=== PATIENT | female | born 1965 | race Caucasian/White ===

== ENCOUNTER 2017-05-18 05:48 | Day surgery (SDC) | payer BC ==
[2017-05-18] MEDS ORDERED: Lactated Ringers 1,000 ML IV SCH (06:30)
[2017-05-18] MEDS ORDERED: Ketamine HCl 50 MG/ML IV ONE (08:00)
[2017-05-18] MEDS ORDERED: DIPRIVAN 200 MG/20 ML IV ONE (08:00)
[2017-05-18 10:11] VITALS: BP 127/72; PULSE 83; O2SAT 97
--- NOTE | 2017-05-18 11:45 | OP ---
SURGERY DATE/TIME: 05/18/2017817 PREOPERATIVE DIAGNOSIS: Dysphagia. POSTOPERATIVE DIAGNOSIS: Normal exam. PROCEDURE: Esophagogastroduodenoscopy. SURGEON: Dr. Shah. ANESTHESIA: Medications were given by the anesthesia department. BRIEF HISTORY: The patient is a 51 year old white female who reports that over the last three weeks she has had trouble with food sticking in her throat. She points to the neck area as the area of discomfort. The patient is felt the need to have endoscopic evaluation. She was appraised of the risks of the procedure including the risk of perforation, phlebitis, untoward reaction to medication, bleeding and missed lesions. The patient verbalized her understanding and desired to have the procedure performed. DESCRIPTION OF PROCEDURE: The patient was given the medications by the anesthesia department. She had continuous pulse oximetry, ECG monitoring, intermittent blood pressure monitoring and tidal CO2 monitoring during the examination. She was placed in the left lateral decubitus position. A bite block was placed and the flexible Olympus gastroscope was used to intubate the oropharynx. The scope was easily introduced into the esophagus which appeared to be normal throughout its length. The stomach was entered where normal gastric rugal folds were seen and these distended nicely with insufflation of air. The scope was passed along the greater curvature of the stomach to the antrum. The pylorus encountered and intubated. The duodenum inspected and found to be normal. The scope is withdrawn towards the stomach. Again, a retroflex view was obtained of the lesser curvature, fundus and cardia regions of the stomach and no mucosal lesions were noted in this area. The scope was then removed from the patient who tolerated the procedure well and was sent back to outpatient recovery good condition.
== END 2017-05-18 09:50 | disposition home or self-care (01) ==
LOC: SDC 05:48
PROVIDERS: ATTEND Family Medicine
PROC: 0DJ08ZZ Inspection of Upper Intestinal Tract, Via Natural or Artificial Opening Endoscopic (ICD-10-PCS; principal; 2017-05-18)
DX: R13.10 Dysphagia, unspecified (principal); I10 Essential (primary) hypertension; E78.5 Hyperlipidemia, unspecified
CPT/HCPCS: 00740; J2704

== ENCOUNTER 2019-01-16 11:24 | Observation (INO) | payer OTHER ==
--- NOTE | 2019-01-16 12:08 | ERPHSYRPT ---
- History of Present Illness Time Seen by Provider: 01/16/19 11:30 Historian: patient Exam Limitations: clinical condition Patient Subjective Stated Complaint: pt states has diverticulitis and started having pain yesterday. called Dr Shah's office and stated would need a CT scan but Dr not in office to sign order so she came into ER since pain not getting better. Pt c/o left lower abd pain radiating into back. ate last night at 8pm. normal BMs Triage Nursing Assessment: Pt amb to treatment room. abd Soft, tender to palp. normal BM. +BS [id number]. Bm today. has not ate today d/t nausea. skin pink, warm and dry without impaired sensation. states pain currently at 02/01, took 1 ibuprofen d/t having 1 kidney. pain earlier this am 08/03 but better after taking ibuprofen. Physician History: PATIENT WITH A HISTORY OF INTERMITTENT DIVERTICULITIS, HAS BEEN TREATED WITH ANTIBIOTICS LEVAQUIN X 4 WEEKS, HAS INCREASING LEFT LOWER ABDOMINAL PAIN PESISTENT X 2 DAYS. UNSURE OF FEVER OR CHILLS. DENIES EMESIS, DIARRHEA OR URINARY SYMPTOMS. HAS HISTORY OF RIGHT NEPHRECTOMY DUE TO CARCINOMA. Timing/Duration: day(s) Activities at Onset: none Quality: sharpness, throbbing Abdominal Pain Onset Location: LLQ Pain Radiation: no radiation Severity of Pain-Max: moderate Severity of Pain-Current: moderate Associated Symptoms: nausea, vomiting (4 DAYS AGO) Allergies/Adverse Reactions: hydrocodone [Hydrocodone] Allergy (Intermediate, Verified 11/04/16 15:01) Difficulty Breathing swelling Penicillins Allergy (Intermediate, Verified 05/18/17 06:23) Swelling of Hands vancomycin Allergy (Intermediate, Verified 05/18/17 06:23) Skin Irritation cinammon Allergy (Intermediate, Uncoded 05/18/17 06:23) Swelling Home Medications: Potassium Chloride 10 Meq Tab* [Klor Con 10 MEQ] 20 meq PO DAILY 08/16/14 [ History] Hctz/Triamterene 25/37.5 mg [Maxzide 25MG] 25 mg DAILY 11/04/16 [History] Metformin HCl [Metformin HCl ER] 500 mg PO BID 11/04/16 [History] Losartan/Hydrochlorothiazide [Losartan-Hctz 100-12.5 mg Tab] 1 tab PO HS [History] Hx Tetanus, Diphtheria Vaccination/Date Given: Yes (past 7 years) Hx Influenza Vaccination/Date Given: No Hx Pneumococcal Vaccination/Date Given: No Immunizations Up to Date: Yes - Review of Systems Constitutional: No Fever, No Chills Eyes: No Symptoms Ears, Nose, & Throat: No Symptoms Respiratory: No Symptoms, No Cough, No Dyspnea Cardiac: No Symptoms, No Chest Pain, No Edema, No Syncope Abdominal/Gastrointestinal: Abdominal Pain, Nausea, Vomiting, No Diarrhea Genitourinary Symptoms: No Symptoms, No Dysuria Musculoskeletal: No Symptoms, No Back Pain, No Neck Pain Skin: No Rash Neurological: No Dizziness, No Focal Weakness, No Sensory Changes Psychological: No Symptoms Endocrine: No Symptoms All Other Systems: Reviewed and Negative - Past Medical History Pertinent Past Medical History: Yes Neurological History: No Pertinent History ENT History: No Pertinent History Cardiac History: High Cholesterol, Hypertension Respiratory History: Asthma, Bronchitis Endocrine Medical History: Diabetes Type I Musculoskeletal History: No Pertinent History GI Medical History: Diverticulosis History: Other Psycho-Social History: No Pertinent History Female Reproductive Disorders: No Pertinent History Other Medical History: uti, kidney cancer - Past Surgical History Past Surgical History: Yes Neuro Surgical History: No Pertinent History Cardiac: No Pertinent History Respiratory: No Pertinent History Gastrointestinal: Appendectomy, Cholecystectomy Genitourinary: Kidney Surgery, Other Musculoskeletal: Other Female Surgical History: Hysterectomy, Tubal Ligation Other Surgical History: right kidney removed. rt knee, lt hand tumor removed, rt wrist carpal tunnel, partial hysterectomy - Social History Smoking Status: Former smoker How long have you smoked: 24 yrs Exposure to second hand smoke: No Drug Use: none Patient Lives Alone: No - Female History Hx Last Menstrual Period: hysterectomy 2013 Hx Now: No - Nursing Vital Signs Nursing Vital Signs: Initial Vital Signs Temperature 97.7 F 01/16/19 11:24 Pulse Rate 88 01/16/19 11:24 Respiratory Rate 18 01/16/19 11:24 Blood Pressure 121/67 01/16/19 11:24 O2 Sat by Pulse Oximetry 98 01/16/19 11:24 Pain Scale Pain Intensity 4 - Physical Exam General Appearance: no apparent distress, alert Eye Exam: PERRL/EOMI, eyes nml inspection Ears, Nose, Throat Exam: normal ENT inspection, pharynx normal, moist mucous membranes Neck Exam: normal inspection, non-tender, supple, full range of motion Respiratory Exam: normal breath sounds, lungs clear, No respiratory distress Cardiovascular Exam: regular rate/rhythm, normal heart sounds Gastrointestinal/Abdomen Exam: soft, normal bowel sounds, tenderness (LLQ TENDERNESS, ), No mass Back Exam: normal inspection, normal range of motion, CVA tenderness (LEFT CVA TENDERNESS), No vertebral tenderness Extremity Exam: normal inspection, normal range of motion, pelvis stable Neurologic Exam: alert, oriented x 3, cooperative, normal mood/affect, nml cerebellar function, sensation nml, No motor deficits Skin Exam: normal color, warm, dry SpO2 Interpretation: normal SpO2: 98 O2 Delivery: Room Air - CT Exams Abdomen/Pelvis CT Interpretation: Discussed w/radiologist (NEW MILD SIGMOID DIVETICULITIS,) Ordered Tests: Active Orders 24 hr Category Date Time Status Clean Catch Urine Specimen STAT Care 01/16/19 12:09 Active IV Insertion STAT Care 01/16/19 12:09 Active ABDOMEN AND PELVIS W/0 CONTRAS [CT] Stat Exams 01/16/19 12:09 Completed AMYLASE Stat Lab 01/16/19 12:45 Received BMP Stat Lab 01/16/19 12:45 Received CBC W DIFF Stat Lab 01/16/19 12:59 Completed LIPASE Stat Lab 01/16/19 12:45 Received UA W/RFX UR CULTURE Stat Lab 01/16/19 13:00 Ordered Medication Summary Generic Name Dose Route Start Last Admin Trade Name Freq PRN Reason Stop Dose Admin Sodium Chloride 1,000 mls @ 200 mls/hr 01/16/19 12:15 01/16/19 12:45 Sodium Chloride 0.9% 1000 Ml IV 02/15/19 12:14 200 mls/hr .Q5H SAMANTHA Administration Discontinued Medications Generic Name Dose Route Start Last Admin Trade Name Freq PRN Reason Stop Dose Admin Hydromorphone HCl 1 mg 01/16/19 12:09 01/16/19 12:46 Hydromorphone 1 Mg/Ml Ampule IV 01/16/19 12:10 1 mg STAT ONE Administration Hydromorphone HCl Confirm 01/16/19 12:41 Hydromorphone 1 Mg/Ml Ampule Administered 01/16/19 12:42 Dose 1 mg .ROUTE .STK-MED ONE Ondansetron HCl 4 mg 01/16/19 12:09 01/16/19 12:46 Zofran 4 Mg/2 Ml Vial IV 01/16/19 12:10 4 mg STAT ONE Administration Ondansetron HCl Confirm 01/16/19 12:41 Zofran 4 Mg/2 Ml Vial Administered 01/16/19 12:42 Dose 4 mg .ROUTE .STK-MED ONE Lab/Rad Data: Laboratory Result Diagrams 01/16/19 12:59 Laboratory Results 01/16/19 Range/Units 12:59 WBC 13.0 H (4.0-10.5) K/mm3 RBC 4.61 (4.1-5.4) M/mm3 Hgb 13.8 (12.0-16.0) gm/dl Hct 40.8 (35-47) % MCV 88.5 (78-100) fl MCH 29.9 (26-32) pg MCHC 33.8 (32-36) g/dl RDW 13.1 (11.5-14.0) % Plt Count 262 (150-450) K/mm3 MPV 11.4 H (6-9.5) fl Gran % 65.9 (36.0-66.0) % Eos # (Auto) 0.34 (0-0.5) Absolute Lymphs (auto) 3.22 (1.0-4.6) Absolute Monos (auto) 0.80 (0.0-1.3) Lymphocytes % 24.8 (24.0-44.0) % Monocytes % 6.2 (0.0-12.0) % Eosinophils % 2.6 (0.00-5.0) % Basophils % 0.5 (0.0-0.4) % Absolute Granulocytes 8.57 H (1.4-6.9) Basophils # 0.06 (0-0.4) - Progress Progress Note: 01/16/19 12:07 IV NORMAL SALINE 250ML/HR, ZOFAN 4MG IV, AFTER 2 SETS OF BLOOD CULTURES LEVAQUIN 500MG IVPB Discussed with : Moshe (DISCUSSED WITH DR GLASER AT 1315 FOR OBSERVATION) - Departure Time of Disposition: 13:40 Departure Disposition: Observation Clinical Impression: ACUTE SIGMOID DIVERTICULITIS Condition: Stable Critical Care Time: No Referrals: KUMAR SHAH [Primary Care Provider] -
[2019-01-16] MEDS ORDERED: Zofran 4 MG/2 ML VIAL IV ONE (12:09)
[2019-01-16] MEDS ORDERED: Hydromorphone 1 mg/ml Ampule IV ONE (12:09)
[2019-01-16] MEDS ORDERED: Sodium Chloride 0.9% 1000 ML 1,000 ML IV SCH ×2 (12:15→14:58)
[2019-01-16] MEDS ORDERED: Hydromorphone 1 mg/ml Ampule ONE (12:41)
[2019-01-16] MEDS ORDERED: Zofran 4 MG/2 ML VIAL ONE (12:41)
--- NOTE | 2019-01-16 13:01 | XRAY ---
Indication: Left lower abdomen pain. Multiple contiguous axial images obtained through the abdomen and pelvis without contrast as ordered. Comparison: December 21, 2014. Lung bases are clear. Heart is not enlarged. Noncontrasted stomach and bowel loops appear nonobstructed. Again previous reported appendectomy, cholecystectomy, and right nephrectomy. There is now mild diffuse scattered colonic fecal debris throughout. Stable scattered left hemicolon diverticulosis with now mild diverticulitis in the mid sigmoid. No free fluid/air. Stable diffuse fatty liver and small left mid renal cortical cyst with now punctate calcification. Interval partial hysterectomy. Essentially stable 3.7 cm right ovary cyst. Remaining liver, pancreas, spleen, adrenal glands, left kidney, left ureter, and bladder are unremarkable for noncontrast exam. Mild aortoiliac calcifications without AAA. Osseous structures intact with mild degenerative changes throughout the spine and both hips. Impression: 1. Again scattered colonic diverticulosis with new mild sigmoid diverticulitis. No complications. 2. There is now mild diffuse fecal stasis without obstruction. 3. Again incidental fatty liver, right ovary cyst, and tiny left renal cyst. CT DI 23.15
[2019-01-16 13:07] LABS: BASOPHIL % 0.5 % (0.0-0.4); Basophil (Absolute #) 0.06 (0-0.4); Eosinophil % 2.6 % (0.00-5.0); Eosinophil (Absolute #) 0.34 (0-0.5); Granulocyte Absolute (ANC) 8.57 (1.4-6.9); Granulocytes % 65.9 % (36.0-66.0); Hematocrit 40.8 % (35-47); Hemoglobin 13.8 gm/dl (12.0-16.0); Lymphocyte (Absolute #) 3.22 (1.0-4.6); Lymphocytes % 24.8 % (24.0-44.0); Mean Cell Volume 88.5 fl (78-100); Mean Corpuscular Hemoglobin 29.9 pg (26-32); Mean Corpuscular Hgb Concent. 33.8 g/dl (32-36); Mean Platelet Volume 11.4 fl (6-9.5); Monocytes % 6.2 % (0.0-12.0); Platelet Count 262 K/mm3 (150-450); Red Blood Count 4.61 M/mm3 (4.1-5.4); Red Cell Distribution Width 13.1 % (11.5-14.0)
[2019-01-16] MEDS ORDERED: Levofloxacin 500MG/100ML D5W 500 MG/100 ML BAG IV STA (13:18)
[2019-01-16 13:24] LABS: AMYLASE 72 U/L (30-110); ANION GAP 15.4 MEQ/L (5-15); BLOOD UREA NITROGEN 15 mg/dL (7-17); CHLORIDE 104 mmol/L (98-107); Calcium 9.5 mg/dL (8.4-10.2); Carbon Dioxide 25 mmol/L (22-30); Creatinine 1 0.77 mg/dL (0.52-1.04); Glucose 105 mg/dL (74-106); LIPASE 185 U/L (23-300); Potassium 3.7 mmol/L (3.5-5.1); SODIUM 141 mmol/L (137-145)
[2019-01-16] MEDS ORDERED: FLAGYL 500 MG IVPB 500 MG/100 ML BAG IV SCH (14:58)
[2019-01-16] MEDS ORDERED: MORPHINE SULFATE 4 MG INJ IV PRN (14:58)
[2019-01-16] MEDS ORDERED: Zofran 4 MG/2 ML VIAL IV PRN (14:58)
[2019-01-16] MEDS ORDERED: Levofloxacin 500MG/100ML D5W 500 MG/100 ML BAG IV SCH (15:00)
[2019-01-16 15:19] LABS: Appearance SLIGHTLY CLOUDY (CLEAR); Bilirubin NEGATIVE (NEGATIVE); Blood NEGATIVE Ery/ul (0-5); Epithelial Cells FEW /HPF (FEW); Glucose NEGATIVE (NEGATIVE); Ketones NEGATIVE (NEGATIVE); Leukocyte Esterase NEGATIVE (NEGATIVE); Mucus SLIGHT /HPF (NEGATIVE); Nitrite NEGATIVE (NEGATIVE); Protein,Urine Dip NEGATIVE (Negative); Specific Gravity 1.021 (1.005-1.025); Urobilinogen NEGATIVE mg/dL (0-1); WBC 0-2 /HPF (0-5)
[2019-01-16] MEDS: FLAGYL 500 MG IVPB 500 MG/100 ML BAG IV SCH ×2 (16:09→21:11)
--- NOTE | 2019-01-16 20:44 | PCM.HP ---
History of Present Illness - Chief Complaint Chief Complaint: ACUTE SIGMOID DIVERTICULITIS History of Present Illness: is a 53 year old female pt of Dr. Shah with PMHx GERD, HTN, diverticulitis, and renal cell ca (on R, with surgically absent R kidney now) who was admitted through ER with diverticulitis. She c/o trouble with LLQ pain since 11/25/18 - was given an outpatient rx and was feeling better. When she felt worse again, last Wednesday (1 week ago) she saw Dr. Shah and was given po Levaquin. She became worse yesterday afternoon, with LLQ pain, 9/10, radiating to her back. She came to ER and was started on IV levaquin and flagyl. She now says her pain is 2/10. Denies diarrhea or fever. Has had increased vomiting over the past 1 mo and was given zofran at home. - Review of Systems Constitutional: No Weight Loss (gained 9lb when out of HCTZ) Cardiac: Other (SOB when out of HCTZ recently - resolved) Abdominal/Gastrointestinal: Abdominal Pain, Nausea, Vomiting Neurological: Dizziness (when looking up or shifting eyes suddenly) Psychological: No Suicidal Ideations All Other Systems: Reviewed and Negative Medications & Allergies Home Medications: Home Medication List Potassium Chloride 10 Meq Tab* [Guero Con 10 MEQ] 20 meq PO DAILY 08/16/14 [ History Confirmed 01/16/19] Hctz/Triamterene 25/37.5 mg [Maxzide 25MG] 25 mg DAILY 11/04/16 [History Confirmed 01/16/19] Metformin HCl [Metformin HCl ER] 500 mg PO BID 11/04/16 [History Confirmed 01/16] Losartan/Hydrochlorothiazide [Losartan-Hctz 100-12.5 mg Tab] 1 tab PO HS [History Confirmed 01/16/19] P-Ephed HCl/Triprolidine HCl [Sudafed Sinus Nighttime Tab] 1 each PO HSPRN PRN 01/16/19 [History Confirmed 01/16/19] Allergies/Adverse Reactions: Allergies Allergy/AdvReac Type Severity Reaction Status Date / Time hydrocodone [Hydrocodone] Allergy Intermediate Difficulty Verified 01/16/19 15: 12 Breathing Penicillins Allergy Intermediate Swelling Verified 01/16/19 15:12 of Hands vancomycin Allergy Intermediate Shortness Verified 01/16/19 15:12 of Breath cinammon Allergy Intermediate Swelling Uncoded 01/16/19 15:12 - Past Medical History Past Medical History: Yes Neurological History: No Pertinent History ENT History: No Pertinent History Cardiac History: High Cholesterol, Hypertension Respiratory History: Asthma, Bronchitis Endocrine Medical History: Diabetes Type I Musculoskelatal History: No Pertinent History GI Medical History: Diverticulosis History: Other Pyscho-Social History: No Pertinent History Reproductive Disorders: No Pertinent History Comment: uti, kidney cancer - Female History Hx Last Menstrual Period: hysterectomy 2013 Are you now?: No - Past Surgical History Past Surgical History: Yes Neuro Surgical History: No Pertinent History Cardiac History: No Pertinent History Respiratory Surgery: No Pertinent History GI Surgical History: Appendectomy, Cholecystectomy Genitourinary Surgical Hx: Kidney Surgery, Other Musculskeletal Surgical Hx: Other Female Surgical History: Hysterectomy, Tubal Ligation Other Surgical History: right kidney removed. rt knee, lt hand tumor removed, rt wrist carpal tunnel, partial hysterectomy - Social History Smoking Status: Former smoker How long have you smoked: 24 yrs Exposure to second hand smoke: No Alcohol: None Drug Use: none - Physical Exam Vital Signs: Vital Signs - 24 hr Temp Pulse Resp BP Pulse Ox 01/16/19 17:11 93 L 01/16/19 15:38 98.4 F 79 18 113/62 93 L 01/16/19 14:36 98.4 F 79 18 113/62 93 L 01/16/19 14:24 98.4 F 79 18 113/62 93 L 01/16/19 13:54 98.4 F 79 18 113/62 93 L 01/16/19 13:20 98 01/16/19 12:24 98.4 F 79 18 113/62 93 L 01/16/19 11:24 97.7 F 88 18 121/67 98 General Appearance: no apparent distress, alert, obese Neurologic Exam: oriented x 3, cooperative Eye Exam: eyes nml inspection Ears, Nose, Throat Exam: moist mucous membranes Neck Exam: normal inspection, non-tender, No lymphadenopathy Respiratory Exam: normal breath sounds, lungs clear, No crackles/rales, No rhonchi, No wheezing Cardiovascular Exam: regular rate/rhythm, normal heart sounds, No murmur Gastrointestinal/Abdomen Exam: soft, normal bowel sounds, tenderness (LLQ), No distention, No mass, No guarding, No rebound Extremity Exam: normal inspection, No pedal edema, No swelling Skin Exam: normal color, warm, dry, No rash Results - Labs Lab/Micro Results: Lab Results-Last 24 Hours 01/16/19 01/16/19 01/16/19 Range/Units 12:45 12:59 15:00 WBC 13.0 H (4.0-10.5) K/mm3 RBC 4.61 (4.1-5.4) M/mm3 Hgb 13.8 (12.0-16.0) gm/dl Hct 40.8 (35-47) % MCV 88.5 (78-100) fl MCH 29.9 (26-32) pg MCHC 33.8 (32-36) g/dl RDW 13.1 (11.5-14.0) % Plt Count 262 (150-450) K/mm3 MPV 11.4 H (6-9.5) fl Gran % 65.9 (36.0-66.0) % Eos # (Auto) 0.34 (0-0.5) Absolute Lymphs (auto) 3.22 (1.0-4.6) Absolute Monos (auto) 0.80 (0.0-1.3) Lymphocytes % 24.8 (24.0-44.0) % Monocytes % 6.2 (0.0-12.0) % Eosinophils % 2.6 (0.00-5.0) % Basophils % 0.5 (0.0-0.4) % Absolute Granulocytes 8.57 H (1.4-6.9) Basophils # 0.06 (0-0.4) Sodium 141 (137-145) mmol/L Potassium 3.7 (3.5-5.1) mmol/L Chloride 104 (98-107) mmol/L Carbon Dioxide 25 (22-30) mmol/L Anion Gap 15.4 H (5-15) MEQ/L BUN 15 (7-17) mg/dL Creatinine 0.77 (0.52-1.04) mg/dL Estimated GFR > 60.0 ML/MIN Glucose 105 (74-106) mg/dL Calcium 9.5 (8.4-10.2) mg/dL Amylase 72 (30-110) U/L Lipase 185 (23-300) U/L Urine Color YELLOW (YELLOW) Urine Appearance SLIGHTLY CLOUDY (CLEAR) Urine pH 6.0 (5-6) Ur Specific [place] 1.021 (1.005-1.025) Urine Protein NEGATIVE (Negative) Urine Ketones NEGATIVE (NEGATIVE) Urine Blood NEGATIVE (0-5) Elbert/ul Urine Nitrite NEGATIVE (NEGATIVE) Urine Bilirubin NEGATIVE (NEGATIVE) Urine Urobilinogen NEGATIVE (0-1) mg/dL Ur Leukocyte Esterase NEGATIVE (NEGATIVE) Urine WBC (Auto) 0-2 (0-5) /HPF Urine RBC (Auto) NONE (0-2) /HPF U Epithel Cells (Auto) FEW (FEW) /HPF Urine Bacteria (Auto) NONE (NEGATIVE) /HPF Urine Mucus (Auto) SLIGHT (NEGATIVE) /HPF Urine Culture Reflexed NO (NO) Urine Glucose NEGATIVE (NEGATIVE) mg/dL - Radiology Impressions Radiology Exams & Impressions: Radiology Procedures Category Date Time Status ABDOMEN AND PELVIS W/0 CONTRAS [CT] Stat Exams 01/16/19 12:09 Completed Assessment/Plan (1) Diverticulitis Current Visit: No Status: Acute Qualifiers: Diverticulitis site: large intestine Diverticulitis bleeding: without bleeding Diverticulitis complication: without perforation or abscess Qualified Code(s): K57.32 - Diverticulitis of large intestine without perforation or abscess without bleeding Assessment & Plan: On IV levaquin and flagyl, day #1. improved pain. (2) Absent kidney Current Visit: Yes Status: Chronic Code(s): Z90.5 - ACQUIRED ABSENCE OF KIDNEY (3) GERD (gastroesophageal reflux disease) Current Visit: Yes Status: Chronic Qualifiers: Esophagitis presence: esophagitis presence not specified Qualified Code(s) : K21.9 - Gastro-esophageal reflux disease without esophagitis Code(s): K21.9 - GASTRO-ESOPHAGEAL REFLUX DISEASE WITHOUT ESOPHAGITIS (4) HTN (hypertension) Current Visit: Yes Status: Chronic Qualifiers: Hypertension type: essential hypertension Qualified Code(s): I10 - Essential (primary) hypertension Code(s): I10 - ESSENTIAL (PRIMARY) HYPERTENSION
[2019-01-16] MEDS: TYLENOL 325 MG PO PRN (21:10)
[2019-01-17] MEDS: FLAGYL 500 MG IVPB 500 MG/100 ML BAG IV SCH ×2 (03:10→10:36)
[2019-01-17] MEDS: TYLENOL 325 MG PO PRN ×2 (04:45→09:28)
[2019-01-17 06:09] LABS: BASOPHIL % 0.4 % (0.0-0.4); Basophil (Absolute #) 0.03 (0-0.4); Eosinophil % 3.9 % (0.00-5.0); Eosinophil (Absolute #) 0.28 (0-0.5); Granulocyte Absolute (ANC) 4.24 (1.4-6.9); Hematocrit 37.1 % (35-47); Hemoglobin 11.9 gm/dl (12.0-16.0); Lymphocyte (Absolute #) 1.98 (1.0-4.6); Lymphocytes % 27.5 % (24.0-44.0); Mean Cell Volume 90.5 fl (78-100); Mean Corpuscular Hgb Concent. 32.1 g/dl (32-36); Mean Platelet Volume 11.5 fl (6-9.5); Monocyte (Absolute #) 0.66 (0.0-1.3); Monocytes % 9.2 % (0.0-12.0); Platelet Count 218 K/mm3 (150-450); White Blood Count 7.2 K/mm3 (4.0-10.5)
[2019-01-17 06:22] LABS: ANION GAP 10.8 MEQ/L (5-15); BLOOD UREA NITROGEN 12 mg/dL (7-17); CHLORIDE 104 mmol/L (98-107); Calcium 9.1 mg/dL (8.4-10.2); Carbon Dioxide 29 mmol/L (22-30); Creatinine 1 0.87 mg/dL (0.52-1.04); Glucose 116 mg/dL (74-106); Potassium 3.7 mmol/L (3.5-5.1); SODIUM 140 mmol/L (137-145)
[2019-01-17] MEDS ORDERED: Klor Con 10 MEQ PO SCH (10:00)
[2019-01-17] MEDS ORDERED: Levofloxacin 500MG/100ML D5W 500 MG/100 ML BAG IV SCH (10:00)
[2019-01-17] MEDS ORDERED: ENOXAPARIN SODIUM SQ SCH (10:00)
[2019-01-17] MEDS ORDERED: Maxzide-25MG Tablet PO SCH (10:00)
--- NOTE | 2019-01-17 11:08 | SSS ---
DISCHARGE DIAGNOSIS: SIGMOID DIVERTICULITIS. HISTORY: The patient is a 53 year-old white female who had been treated off and on with outpatient antibiotics for diverticulitis. She had been recently on Levaquin which was improving her abdominal pain but had a sudden exacerbation when she was on her last pill. She presented herself to the emergency room and was admitted to the hospital for IV fluids, gut rest and IV antibiotics. PAST MEDICAL/SURGICAL HISTORY: Significant for diverticulitis. She also has hypertension and diabetes mellitus type 2. She previously had hysterectomy and tubal ligation surgery as well as right knee arthroscopy and right wrist carpal tunnel surgery. HOME MEDICATIONS: Potassium 10 mEq two tablets a day, Maxzide 25 daily, Metformin 500 mg b.i.d. and Losartan hydrochlorothiazide 100/12.5 mg daily. ALLERGIES: PENICILLIN, VANCOMYCIN. PHYSICAL EXAMINATION: Revealed an obese white female currently in no obvious distress. Temperature 97.7F, pulse 88, respiratory rate 18, blood pressure 121/67. O2 saturations were noted to be at 98%. HEENT: Normocephalic, atraumatic. Pupils equal round reactive to light. Extraocular movements intact. Oropharynx is pink and moist. NECK: Supple without lymphadenopathy, thyromegaly or JVD. CHEST: Clear to auscultation with good air movement bilaterally. HEART: Regular rate and rhythm without murmurs, rubs or gallops. ABDOMEN: Tender in the left lower quadrant. No guarding or rebound present. No palpable masses. EXTREMITIES: Without cyanosis, clubbing or edema. NEUROLOGIC: The patient is alert and oriented x3 with no focal deficits noted. LAB DATA AND TESTS: A 12 lead EKG appeared to be normal. She had CT scan abdomen and pelvis which showed colonic diverticulosis with new sigmoid diverticulitis without complications, incidental fatty liver is seen. The patient's metabolic panel showed glucose of 105, BUN 15, creatinine 0.77. Electrolytes were normal. Liver enzymes were normal. Amylase and lipase were normal. Her white blood cell count was 13,000, hemoglobin 13.8, PLT count 262,000. There were 65.9% granulocytes. UA was essentially normal. HOSPITAL COURSE: The patient was admitted to the [facility], given IV Flagyl and IV Levaquin. By the next morning the patient was feeling much better again and felt to be ready for discharge home. She was instructed to be on mostly liquids but did have a light meal mostly bland. She will be sent home on Flagyl 500 mg two times a day in addition to Levaquin 500 mg daily for ten days. She will follow up in the office in one week. She is to call back if she has any exacerbation of her problems in the interim.
[2019-01-17 12:05] VITALS: BP 134/68; PULSE 74; O2SAT 98
[2019-01-17] MEDS ORDERED: Cozaar 50 MG PO SCH (22:00)
[2019-01-17] MEDS ORDERED: hydroDIURIL 25 MG PO SCH (22:00)
== END 2019-01-17 13:25 | disposition home or self-care (01) ==
LOC: ED 11:24 → MED SURG 14:25
PROVIDERS: ADMIT Family Medicine; ATTEND Family Medicine
DX: K57.32 Diverticulitis of large intestine without perforation or abscess without bleeding (principal); I10 Essential (primary) hypertension; Z85.528 Personal history of other malignant neoplasm of kidney; Z90.5 Acquired absence of kidney; R42 Dizziness and giddiness; Z79.899 Other long term (current) drug therapy; E78.00 Pure hypercholesterolemia, unspecified; K21.9 Gastro-esophageal reflux disease without esophagitis; E11.9 Type 2 diabetes mellitus without complications
CPT/HCPCS: 36000; 36415; 74176; 80048; 81001; 82150; 83690; 85025; 93268; 94762; 96360; 96374; 96375; 99285; G0378; J1170; J2405; A9270-GY

== ENCOUNTER 2020-02-19 06:32 | Emergency (ER) | payer BC ==
[2020-02-19 07:13] LABS: Absolute Neutrophil Ct (ANC) 4.55 (1.4-6.9); BASOPHIL % 0.7 % (0.0-0.4); Basophil (Absolute #) 0.06 (0-0.4); Eosinophil % 5.4 % (0.00-5.0); Eosinophil (Absolute #) 0.46 (0-0.5); Hemoglobin 13.8 gm/dl (12.0-16.0); Lymphocytes % 32.9 % (24.0-44.0); Mean Cell Volume 88.8 fl (78-100); Mean Corpuscular Hemoglobin 29.2 pg (26-32); Mean Corpuscular Hgb Concent. 32.9 g/dl (32-36); Mean Platelet Volume 11.7 fl (7.5-11.0); Monocyte (Absolute #) 0.63 (0.0-1.3); Monocytes % 7.4 % (0.0-12.0); Neutrophil % 53.6 % (36.0-66.0); Platelet Count 273 K/mm3 (150-450); Red Blood Count 4.73 M/mm3 (4.1-5.4); Red Cell Distribution Width 13.5 % (11.5-14.0); White Blood Count 8.5 K/mm3 (4.0-10.5)
[2020-02-19 07:16] LABS: INR 1.01 (0.8-3.0); PROTIME 11.4 SECONDS (9.95-12.35)
--- NOTE | 2020-02-19 07:18 | ERPHSYRPT ---
- History of Present Illness Time Seen by Provider: 02/19/20 07:05 Historian: patient Exam Limitations: no limitations Patient Subjective Stated Complaint: pt c/o chest pain Triage Nursing Assessment: pt c/o chest pain to lt upper chest up into center of chest and up throat, also has pain to back between the shoulder blades, which started at 0100 today. Pain has eased up at times but has never completely gone away. Pt was seen in [facility] care on 12/26/19 for bladder infection and pt was sent from there for an EKG. 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 They did find that the pt appears to have had an [place] previously as left upper part of heart appears is very weak but no blockages found. Physician History: Patient is a 54-year-old female who presents too ED with complaints of pain. Chest pain started at 1am this morning. Timing/Duration: today Activities at Onset: none (Sleeping) Location: substernal Chest Pain Radiation: jaw, neck, back Severity of Pain-Current: moderate Modifying Factors: Improves With: nothing Associated Symptoms: diaphoresis (lightheadedness ) Prior Chest Pain/Cardiac Workup: cardiac cath, echocardiography Nitro Today/Relief: no nitro taken today Aspirin Treatment Today: no aspirin today Allergies/Adverse Reactions: hydrocodone [Hydrocodone] Allergy (Intermediate, Verified 02/19/20 06:49) Difficulty Breathing swelling Penicillins Allergy (Intermediate, Verified 02/19/20 06:49) Swelling of Hands vancomycin Allergy (Intermediate, Verified 02/19/20 06:49) Shortness of Breath cinammon Allergy (Intermediate, Uncoded 01/16/19 15:12) Swelling Home Medications: Potassium Chloride 10 Meq Tab* [Klor Con 10 MEQ] 20 meq PO DAILY 08/16/14 [ History] Hctz/Triamterene 25/37.5 mg [Maxzide 25MG] 25 mg PO DAILY 11/04/16 [History] Metformin HCl [Metformin HCl ER] 500 mg PO BID 11/04/16 [History] Losartan/Hydrochlorothiazide [Losartan-Hctz 100-12.5 mg Tab] 1 tab PO HS [History] Carvedilol 3.125 mg [Coreg 3.125 MG] 3.125 mg PO BID 02/19/20 [History] Magnesium Oxide [Magnesium] 400 mg PO BID 02/19/20 [History] Omeprazole 20 mg PO DAILY 02/19/20 [History] Hx Tetanus, Diphtheria Vaccination/Date Given: (unknown) Hx Influenza Vaccination/Date Given: No Hx Pneumococcal Vaccination/Date Given: No Immunizations Up to Date: No Travel Risk - International Travel Have you traveled outside of the country in past 3 weeks: No Have you or anyone close to you been diagnosed with or: No Do your reside in a community with a known COVID-19 case?: Yes If Yes where:: [place] - Coronavirus Screening Has patient experienced Coronavirus symptoms: Yes Symptoms experienced: respiratory symptoms (i.e.Cought,shortness of breath) Date of respiratory symptoms onset:: 02/19/20 - Review of Systems Constitutional: No Fever, No Chills Eyes: No Symptoms Ears, Nose, & Throat: No Symptoms Respiratory: No Symptoms, No Cough, No Dyspnea Cardiac: No Symptoms, No Chest Pain, No Edema, No Syncope Abdominal/Gastrointestinal: No Symptoms, No Abdominal Pain, No Nausea, No Vomiting, No Diarrhea Genitourinary Symptoms: No Symptoms, No Dysuria Musculoskeletal: No Symptoms, No Back Pain, No Neck Pain Skin: No Symptoms, No Rash Neurological: No Symptoms, No Dizziness, No Focal Weakness, No Sensory Changes Psychological: No Symptoms Endocrine: No Symptoms Hematologic/Lymphatic: No Symptoms Immunological/Allergic: No Symptoms All Other Systems: Reviewed and Negative - Past Medical History Pertinent Past Medical History: Yes Neurological History: No Pertinent History ENT History: No Pertinent History Cardiac History: Angina, High Cholesterol, Hypertension, Myocardial Infarction ( [place]) Respiratory History: Asthma, Bronchitis Endocrine Medical History: Diabetes Type II Musculoskeletal History: No Pertinent History GI Medical History: Diverticulosis History: Other Psycho-Social History: No Pertinent History Female Reproductive Disorders: No Pertinent History Other Medical History: uti, kidney cancer - Past Surgical History Past Surgical History: Yes Neuro Surgical History: No Pertinent History Cardiac: No Pertinent History Respiratory: No Pertinent History Gastrointestinal: Appendectomy, Cholecystectomy Genitourinary: Kidney Surgery, Other Musculoskeletal: Other Female Surgical History: Hysterectomy, Tubal Ligation Other Surgical History: right kidney removed. rt knee, lt hand tumor removed, rt wrist carpal tunnel, partial hysterectomy, rt shoulder - Social History Smoking Status: Former smoker How long have you smoked: 24 yrs Exposure to second hand smoke: No Drug Use: none Patient Lives Alone: No - Female History Hx Now: No - Nursing Vital Signs Nursing Vital Signs: Initial Vital Signs Temperature 97.5 F 02/19/20 06:33 Pulse Rate 69 02/19/20 06:33 Respiratory Rate 17 02/19/20 06:33 Blood Pressure 159/94 02/19/20 06:33 O2 Sat by Pulse Oximetry 98 02/19/20 06:33 Pain Scale Pain Intensity 0 - Physical Exam General Appearance: no apparent distress, alert Eye Exam: PERRL/EOMI, eyes nml inspection Ears, Nose, Throat Exam: normal ENT inspection, moist mucous membranes Neck Exam: normal inspection, non-tender, supple, full range of motion Respiratory Exam: normal breath sounds, lungs clear, other (Holter monitor intact in place. ), No respiratory distress Cardiovascular Exam: regular rate/rhythm, normal heart sounds Gastrointestinal/Abdomen Exam: soft, No tenderness, No mass Pelvic Exam: not done Rectal Exam: deferred Back Exam: normal inspection, No CVA tenderness, No vertebral tenderness Extremity Exam: normal inspection, normal range of motion Neurologic Exam: alert, oriented x 3, cooperative, normal mood/affect, sensation nml, No motor deficits Skin Exam: normal color, warm, dry Lymphatic Exam: adenopathy SpO2 Interpretation: normal SpO2: 97 O2 Delivery: Room Air - Course Nursing assessment & vital signs reviewed: Yes EKG Interpreted by Me: RATE, Sinus Sergo ([id number]), NORMAL AXIS, NORMAL INTERVALS, Left Bundle Branch Block - Radiology Exams Chest X-ray Interpretation: Teleradiologist Report (osteopenia, enchondroma, no acute process) Ordered Tests: Active Orders 24 hr Category Date Time Status Paring Machine Operator STAT Care 02/19/20 07:03 Active EKG-ER Only STAT Care 02/19/20 07:02 Active IV Insertion STAT Care 02/19/20 07:02 Active Isolation, Initiate & Maintain Q4H Care 02/19/20 06:48 Active Pulse Oximetry (ED) STAT Care 02/19/20 07:02 Active CHEST 1 VIEW (PORTABLE) Stat Exams 02/19/20 07:03 Completed CBC W DIFF Stat Lab 02/19/20 07:00 Completed CMP Stat Lab 02/19/20 07:00 Completed D-DIMER QUANTITATIVE Stat Lab 02/19/20 07:21 Completed NT PRO BNP Stat Lab 02/19/20 07:00 Completed PROTIME WITH INR Stat Lab 02/19/20 07:00 Completed PTT Stat Lab 02/19/20 07:00 Completed TROPONIN Q3H Lab 02/19/20 07:00 Completed TROPONIN Q3H Lab 02/19/20 09:55 Completed TROPONIN Q3H Lab 02/19/20 13:15 Ordered TROPONIN Q3H Lab 02/19/20 16:15 Ordered TROPONIN Q3H Lab 02/19/20 19:15 Ordered Urine Triage Profile Stat Lab 02/19/20 07:46 Completed Lab/Rad Data: Laboratory Result Diagrams 02/19/20 07:00 02/19/20 07:00 Laboratory Results 02/19/20 02/19/20 02/19/20 Range/Units 09:55 07:46 07:21 WBC (4.0-10.5) K/mm3 RBC (4.1-5.4) M/mm3 Hgb (12.0-16.0) gm/dl Hct (35-47) % MCV (78-100) fl MCH (26-32) pg MCHC (32-36) g/dl RDW (11.5-14.0) % Plt Count (150-450) K/mm3 MPV (7.5-11.0) fl Gran % (36.0-66.0) % Eos # (Auto) (0-0.5) Absolute Lymphs (auto) (1.0-4.6) Absolute Monos (auto) (0.0-1.3) Lymphocytes % (24.0-44.0) % Monocytes % (0.0-12.0) % Eosinophils % (0.00-5.0) % Basophils % (0.0-0.4) % Absolute Granulocytes (1.4-6.9) Basophils # (0-0.4) PT (9.95-12.35) SECONDS INR (0.8-3.0) APTT (25.3-37.0) SECONDS D-Dimer 293 (215-500) ng/mL Sodium (137-145) mmol/L Potassium (3.5-5.1) mmol/L Chloride (98-107) mmol/L Carbon Dioxide (22-30) mmol/L Anion Gap (5-15) MEQ/L BUN (7-17) mg/dL Creatinine (0.52-1.04) mg/dL Estimated GFR ML/MIN Glucose (74-106) mg/dL Calcium (8.4-10.2) mg/dL Total Bilirubin (0.2-1.3) mg/dL AST (14-36) U/L ALT (0-35) U/L Alkaline Phosphatase (38-126) U/L Troponin I < 0.012 (0.000-0.034) ng/mL NT-Pro-B Natriuret Pep (0-900) pg/mL Serum Total Protein (6.3-8.2) g/dL Albumin (3.5-5.0) g/dL Urine Opiates Level NEGATIVE (NEGATIVE) Ur Methadone NEGATIVE (NEGATIVE) Urine Barbiturates NEGATIVE (NEGATIVE) Ur Phencyclidine (PCP) NEGATIVE (NEGATIVE) Urine Amphetamine NEGATIVE (NEGATIVE) U Benzodiazepine Level NEGATIVE (NEGATIVE) Urine Cocaine NEGATIVE (NEGATIVE) Urine Marijuana (THC) NEGATIVE (NEGATIVE) 02/19/20 02/19/20 02/19/20 Range/Units 07:00 07:00 07:00 WBC (4.0-10.5) K/mm3 RBC (4.1-5.4) M/mm3 Hgb (12.0-16.0) gm/dl Hct (35-47) % MCV (78-100) fl MCH (26-32) pg MCHC (32-36) g/dl RDW (11.5-14.0) % Plt Count (150-450) K/mm3 MPV (7.5-11.0) fl Gran % (36.0-66.0) % Eos # (Auto) (0-0.5) Absolute Lymphs (auto) (1.0-4.6) Absolute Monos (auto) (0.0-1.3) Lymphocytes % (24.0-44.0) % Monocytes % (0.0-12.0) % Eosinophils % (0.00-5.0) % Basophils % (0.0-0.4) % Absolute Granulocytes (1.4-6.9) Basophils # (0-0.4) PT 11.4 (9.95-12.35) SECONDS INR 1.01 (0.8-3.0) APTT 30.2 (25.3-37.0) SECONDS D-Dimer (215-500) ng/mL Sodium 141 (137-145) mmol/L Potassium 3.7 (3.5-5.1) mmol/L Chloride 105 (98-107) mmol/L Carbon Dioxide 28 (22-30) mmol/L Anion Gap 11.8 (5-15) MEQ/L BUN 17 (7-17) mg/dL Creatinine 0.83 (0.52-1.04) mg/dL Estimated GFR > 60.0 ML/MIN Glucose 112 H (74-106) mg/dL Calcium 9.7 (8.4-10.2) mg/dL Total Bilirubin 0.50 (0.2-1.3) mg/dL AST 21 (14-36) U/L ALT 22 (0-35) U/L Alkaline Phosphatase 85 (38-126) U/L Troponin I < 0.012 (0.000-0.034) ng/mL NT-Pro-B Natriuret Pep 1050 H (0-900) pg/mL Serum Total Protein 7.4 (6.3-8.2) g/dL Albumin 4.1 (3.5-5.0) g/dL Urine Opiates Level (NEGATIVE) Ur Methadone (NEGATIVE) Urine Barbiturates (NEGATIVE) Ur Phencyclidine (PCP) (NEGATIVE) Urine Amphetamine (NEGATIVE) U Benzodiazepine Level (NEGATIVE) Urine Cocaine (NEGATIVE) Urine Marijuana (THC) (NEGATIVE) 02/19/20 Range/Units 07:00 WBC 8.5 (4.0-10.5) K/mm3 RBC 4.73 (4.1-5.4) M/mm3 Hgb 13.8 (12.0-16.0) gm/dl Hct 42.0 (35-47) % MCV 88.8 (78-100) fl MCH 29.2 (26-32) pg MCHC 32.9 (32-36) g/dl RDW 13.5 (11.5-14.0) % Plt Count 273 (150-450) K/mm3 MPV 11.7 H (7.5-11.0) fl Gran % 53.6 (36.0-66.0) % Eos # (Auto) 0.46 (0-0.5) Absolute Lymphs (auto) 2.80 (1.0-4.6) Absolute Monos (auto) 0.63 (0.0-1.3) Lymphocytes % 32.9 (24.0-44.0) % Monocytes % 7.4 (0.0-12.0) % Eosinophils % 5.4 H (0.00-5.0) % Basophils % 0.7 (0.0-0.4) % Absolute Granulocytes 4.55 (1.4-6.9) Basophils # 0.06 (0-0.4) PT (9.95-12.35) SECONDS INR (0.8-3.0) APTT (25.3-37.0) SECONDS D-Dimer (215-500) ng/mL Sodium (137-145) mmol/L Potassium (3.5-5.1) mmol/L Chloride (98-107) mmol/L Carbon Dioxide (22-30) mmol/L Anion Gap (5-15) MEQ/L BUN (7-17) mg/dL Creatinine (0.52-1.04) mg/dL Estimated GFR ML/MIN Glucose (74-106) mg/dL Calcium (8.4-10.2) mg/dL Total Bilirubin (0.2-1.3) mg/dL AST (14-36) U/L ALT (0-35) U/L Alkaline Phosphatase (38-126) U/L Troponin I (0.000-0.034) ng/mL NT-Pro-B Natriuret Pep (0-900) pg/mL Serum Total Protein (6.3-8.2) g/dL Albumin (3.5-5.0) g/dL Urine Opiates Level (NEGATIVE) Ur Methadone (NEGATIVE) Urine Barbiturates (NEGATIVE) Ur Phencyclidine (PCP) (NEGATIVE) Urine Amphetamine (NEGATIVE) U Benzodiazepine Level (NEGATIVE) Urine Cocaine (NEGATIVE) Urine Marijuana (THC) (NEGATIVE) - Progress Progress: improved Air Movement: good Progress Note: case discussed with 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 Vann who fells that in light of a essentailly non-obstructive cardiac catheterization, patient may be discharged home as long as the 2nd cardiac troponin is negative. Case discussed with Dr. Perez. In light of patients symptomology with no definitive explanation, we will test patient for covid. Patient two daughters are healthcare workers. 02/19/20 09:44 02/19/20 10:43 Patient reassessed. NO active chest pain. Patient agrees to follow up with Dr. Leyva within 48 hours for a re-evaluation 02/19/20 10:53 Work note provided. Patient to self quarantine until notified of Covid-19 results. Blood Culture(s) Obtained: No Antibiotics given: No Discussed with Dr.: Breana (Case discussed with patient's cardiologis, Dr. Leyva who agrees with disposition/POC) - Departure Departure Disposition: Home Clinical Impression: Osteopenia, Chest pain, Elevated brain natriuretic peptide (BNP) level, Enchondroma of bone Condition: Good Critical Care Time: No Referrals: ZOILA EVANS [Primary Care Provider] - JENNIFER LEYVA [CONSULTING PHYSICIAN] - Additional Instructions: Please self-quarantine until your Covid-19 test results PLease follow up with Dr. Leyva within 48 hours for a re-evaluation. Discharge/Care Plan ERAN MARMOLEJO was seen on 02/19/20 in the Emergency Room. The patient was counseled regarding Diagnosis,Lab results, Imaging studies, need for follow up and when to return to the Emergency Room. Prescriptions given: Discharge Note I have spoken with the patient and/or caregivers. I have explained the patient' s condition, diagnosis and treatment plan based on the information available to me at this time. I have answered the patient's and/or caregiver's questions and addressed any concerns. The patient and/or caregivers have as good understanding of the patient's diagnosis, condition and treatment plan as can be expected at this point. The vital signs have been stable. The patient's condition is stable and appropriate for discharge from the emergency department. The patient will pursue further outpatient evaluation with the primary care physician or other designated or consulting physician as outlined in the discharge instructions. The patient and/or caregivers are agreeable to this plan of care and follow-up instructions have been explained in detail. The patient and/or caregivers have received these instruction. The patient/and or caregivers are aware that any significant change in condition or worsening of symptoms should prompt an immediate return to this or the closest emergency department or call 911.
[2020-02-19 07:19] LABS: PTT 30.2 SECONDS (25.3-37.0)
[2020-02-19 07:31] LABS: ALBUMIN 4.1 g/dL (3.5-5.0); ALKALINE PHOSPHATASE 85 U/L (38-126); ANION GAP 11.8 MEQ/L (5-15); BLOOD UREA NITROGEN 17 mg/dL (7-17); CHLORIDE 105 mmol/L (98-107); Calcium 9.7 mg/dL (8.4-10.2); Carbon Dioxide 28 mmol/L (22-30); Creatinine 1 0.83 mg/dL (0.52-1.04); Glucose 112 mg/dL (74-106); NT PRO BNP 1050 pg/mL (0-900); Potassium 3.7 mmol/L (3.5-5.1); SGOT/AST 21 U/L (14-36); SGPT/ALT 22 U/L (0-35); SODIUM 141 mmol/L (137-145); Total Protein 7.4 g/dL (6.3-8.2)
[2020-02-19 08:09] LABS: Amphetamine,Urine NEGATIVE (NEGATIVE); Barbiturate,Urine NEGATIVE (NEGATIVE); Benzodiazepine,Urine NEGATIVE (NEGATIVE); Cocaine,Urine NEGATIVE (NEGATIVE); Methadone,Urine NEGATIVE (NEGATIVE); Opiate,Urine NEGATIVE (NEGATIVE); PCP,Urine NEGATIVE (NEGATIVE); THC,Urine NEGATIVE (NEGATIVE)
--- NOTE | 2020-02-19 08:16 | XRAY ---
Indication: Chest pain. Comparison: July 15, 2018. Portable apical lordotic chest underinflated and clear. Heart is not enlarged for AP portable technique with overlying electronic monitoring device. Bony thorax intact again with mild osteopenia and right humeral enchondroma. Impression: Nonacute underinflated chest with chronic features.
[2020-02-19 11:06] VITALS: BP 155/110; PULSE 75; O2SAT 96
== END 2020-02-19 11:06 | disposition home or self-care (01) ==
LOC: ED 06:32
DX: M85.80 Other specified disorders of bone density and structure, unspecified site (principal); R07.9 Chest pain, unspecified; R79.89 Other specified abnormal findings of blood chemistry; D16.9 Benign neoplasm of bone and articular cartilage, unspecified
CPT/HCPCS: 36000; 36415; 71045; 80053; 80307; 83880; 84484; 85025; 85379; 85610; 85730; 93005; 93041; 94760; 99000; 99284; U0001

== ENCOUNTER 2020-12-09 10:53 | Observation (INO) | payer OTHER ==
[2020-12-09] MEDS ORDERED: Sodium Chloride 0.9% 1000 ML 1,000 ML IV STA (11:37)
[2020-12-09] MEDS ORDERED: Zofran 4 MG/2 ML VIAL IV PRN (12:07)
[2020-12-09 12:42] LABS: Absolute Neutrophil Ct (ANC) 6.32 (1.4-6.9); BASOPHIL % 0.7 % (0.0-0.4); Basophil (Absolute #) 0.07 (0-0.4); Eosinophil % 10.2 % (0.00-5.0); Eosinophil (Absolute #) 1.03 (0-0.5); Hematocrit 41.5 % (35-47); Hemoglobin 13.1 gm/dl (12.0-16.0); Lymphocyte (Absolute #) 1.88 (1.0-4.6); Lymphocytes % 18.7 % (24.0-44.0); Mean Cell Volume 87.9 fl (78-100); Mean Corpuscular Hemoglobin 27.8 pg (26-32); Mean Corpuscular Hgb Concent. 31.6 g/dl (32-36); Mean Platelet Volume 11.1 fl (7.5-11.0); Monocyte (Absolute #) 0.75 (0.0-1.3); Monocytes % 7.5 % (0.0-12.0); Neutrophil % 62.9 % (36.0-66.0); Platelet Count 233 K/mm3 (150-450); Red Blood Count 4.72 M/mm3 (4.1-5.4); Red Cell Distribution Width 13.1 % (11.5-14.0); White Blood Count 10.1 K/mm3 (4.0-10.5)
[2020-12-09 12:56] LABS: ALBUMIN 4.3 g/dL (3.5-5.0); ALKALINE PHOSPHATASE 78 U/L (38-126); ANION GAP 12.8 MEQ/L (5-15); BLOOD UREA NITROGEN 7 mg/dL (7-17); CHLORIDE 102 mmol/L (98-107); Calcium 9.8 mg/dL (8.4-10.2); Carbon Dioxide 26 mmol/L (22-30); Creatinine 1 0.81 mg/dL (0.52-1.04); EST GLOMERULAR FILTRATION RATE > 60.0 ML/MIN; Glucose 153 mg/dL (74-106); SGOT/AST 28 U/L (14-36); SGPT/ALT 27 U/L (0-35); SODIUM 137 mmol/L (137-145); Total Protein 7.7 g/dL (6.3-8.2)
--- NOTE | 2020-12-09 13:04 | XRAY ---
Indication: Diverticulitis symptoms 5 weeks. Multiple contiguous axial images obtained through the abdomen and pelvis without contrast. Comparison: November 28, 2020. Examination ordered with IV contrast. However patient has one kidney and a CT abdomen/pelvis was performed 11 days earlier. Exam was therefore performed without contrast. Lung bases remain clear of infiltrate and effusion. Heart is not enlarged. Noncontrasted stomach and bowel loops remain nonobstructed with again scattered colonic diverticulosis. Previous sigmoid diverticulitis has resolved. Descending colon demonstrates new minimal/mild pericolonic stranding favoring diverticulitis. No free fluid/air. Stable 21 cm fatty hepatomegaly, 3.1 cm right ovary cyst, appendectomy, cholecystectomy, right nephrectomy, and partial hysterectomy. Previous left renal cysts not seen on this noncontrast exam. Remaining liver, pancreas, spleen, adrenal glands, left kidney, left ureter, and bladder appear unremarkable for noncontrast exam. Stable mild aortoiliac calcifications without AAA. Impression: 1. Interval resolved sigmoid diverticulitis. New descending colonic diverticulitis without complications. 2. Again incidental fatty hepatomegaly and right ovary cyst. 3. Remaining CT abdomen/pelvis without contrast exam is negative.
[2020-12-09] MEDS: Sodium Chloride 0.9% 1000 ML 1,000 ML IV SCH (13:51)
[2020-12-09] MEDS: Invanz 1 GM*** 1 G in Sodium Chloride 100ML MINI-BAG PLUS 100 ML IV SCH (13:54)
[2020-12-09 15:07] LABS: Appearance SLIGHTLY CLOUDY (CLEAR); Bacteria RARE /HPF (NEGATIVE); Bilirubin NEGATIVE (NEGATIVE); Blood NEGATIVE Ery/ul (0-5); Epithelial Cells FEW /HPF (FEW); Glucose NEGATIVE (NEGATIVE); Ketones NEGATIVE (NEGATIVE); Leukocyte Esterase TRACE (NEGATIVE); Mucus SLIGHT /HPF (NEGATIVE); Nitrite NEGATIVE (NEGATIVE); Protein,Urine Dip NEGATIVE (Negative); Specific Gravity 1.017 (1.005-1.025); Urobilinogen NEGATIVE mg/dL (0-1)
[2020-12-09 17:36] LABS: 027 TOX PROD PRESUMPTIVE NEGATIVE (NEGATIVE); TOXIGENIC C. DIFF ORG NEGATIVE (NEGATIVE)
[2020-12-09] MEDS: MAG-OX 400 PO SCH (21:07)
[2020-12-09] MEDS: Cozaar 50 MG PO SCH (21:07)
[2020-12-09] MEDS: Coreg 3.125 MG PO SCH (21:07)
[2020-12-09] MEDS ORDERED: NON-FORMULARY ITEM (Magnesium Oxide [Magnesium] 400 MG) PO SCH (22:00)
[2020-12-09] MEDS ORDERED: NON-FORMULARY ITEM (Losartan Potassium [Losartan Potassium] 100 MG) PO SCH (22:00)
[2020-12-10] MEDS: Sodium Chloride 0.9% 1000 ML 1,000 ML IV SCH ×3 (00:22→16:56)
[2020-12-10] MEDS: Klor Con 10 MEQ PO SCH (09:17)
[2020-12-10] MEDS: TYLENOL 325 MG PO PRN (09:17)
[2020-12-10] MEDS: hydroDIURIL 25 MG PO SCH (09:17)
[2020-12-10] MEDS: Coreg 3.125 MG PO SCH (09:17)
[2020-12-10] MEDS: Protonix 40MG Tablet PO SCH (09:18)
[2020-12-10] MEDS: MAG-OX 400 PO SCH ×2 (09:18→21:38)
[2020-12-10] MEDS: BENTYL 20 MG PO SCH (09:18)
[2020-12-10] MEDS ORDERED: NON-FORMULARY ITEM (Omeprazole [Omeprazole] 20 MG) PO SCH (10:00)
[2020-12-10] MEDS ORDERED: NON-FORMULARY ITEM (Dicyclomine Hcl [Dicyclomine Hcl] 10 MG) PO SCH (10:00)
[2020-12-10] MEDS: Invanz 1 GM*** 1 G in Sodium Chloride 100ML MINI-BAG PLUS 100 ML IV SCH (12:47)
[2020-12-10] MEDS: Coreg 6.25 MG PO SCH (21:38)
[2020-12-10] MEDS: Cozaar 50 MG PO SCH (21:38)
[2020-12-11] MEDS: TYLENOL 325 MG PO PRN (07:34)
[2020-12-11] MEDS: BENTYL 20 MG PO SCH (09:32)
[2020-12-11] MEDS: Protonix 40MG Tablet PO SCH (09:32)
[2020-12-11] MEDS: Klor Con 10 MEQ PO SCH (09:32)
[2020-12-11] MEDS: Coreg 6.25 MG PO SCH ×2 (09:33→21:26)
[2020-12-11] MEDS: hydroDIURIL 25 MG PO SCH (09:33)
[2020-12-11] MEDS: MAG-OX 400 PO SCH ×2 (09:33→21:26)
[2020-12-11] MEDS: Invanz 1 GM*** 1 G in Sodium Chloride 100ML MINI-BAG PLUS 100 ML IV SCH (11:40)
[2020-12-11] MEDS: Cozaar 50 MG PO SCH (21:26)
[2020-12-12] MEDS: Sodium Chloride 0.9% 1000 ML 1,000 ML IV SCH (01:13)
[2020-12-12] MEDS: hydroDIURIL 25 MG PO SCH (09:12)
[2020-12-12] MEDS: BENTYL 20 MG PO SCH (09:12)
[2020-12-12] MEDS: Protonix 40MG Tablet PO SCH (09:12)
[2020-12-12] MEDS: Klor Con 10 MEQ PO SCH (09:12)
[2020-12-12] MEDS: MAG-OX 400 PO SCH ×2 (09:12→21:26)
[2020-12-12] MEDS: Coreg 6.25 MG PO SCH ×2 (09:12→21:26)
[2020-12-12] MEDS: Invanz 1 GM*** 1 G in Sodium Chloride 100ML MINI-BAG PLUS 100 ML IV SCH (11:57)
[2020-12-12] MEDS: Cozaar 50 MG PO SCH (21:26)
[2020-12-13] MEDS: BENTYL 20 MG PO SCH (09:09)
[2020-12-13] MEDS: Coreg 6.25 MG PO SCH (09:11)
[2020-12-13] MEDS: hydroDIURIL 25 MG PO SCH (09:11)
[2020-12-13] MEDS: Klor Con 10 MEQ PO SCH (09:11)
[2020-12-13] MEDS: MAG-OX 400 PO SCH (09:12)
[2020-12-13] MEDS: Protonix 40MG Tablet PO SCH (09:12)
[2020-12-13] MEDS: Invanz 1 GM*** 1 G in Sodium Chloride 100ML MINI-BAG PLUS 100 ML IV SCH (11:03)
[2020-12-13 11:19] VITALS: BP 118/62; PULSE 70; O2SAT 96
== END 2020-12-13 13:15 | disposition home or self-care (01) ==
LOC: MED SURG 11:36
PROVIDERS: ADMIT Family Medicine; ATTEND Family Medicine
DX: K57.32 Diverticulitis of large intestine without perforation or abscess without bleeding (principal); E86.0 Dehydration; E11.9 Type 2 diabetes mellitus without complications; I10 Essential (primary) hypertension; Z79.899 Other long term (current) drug therapy
CPT/HCPCS: 36415; 74176; 80053; 81001; 82947; 83036; 85025; 87086; 87493; 93268; J1335; J2405; A9270-GY; G0378

== ENCOUNTER 2020-12-14 07:57 | Day surgery (SDC) | payer OTHER ==
[2020-12-14] MEDS: Invanz 1 GM*** 1 G in Sodium Chloride 100ML MINI-BAG PLUS 100 ML IV SCH (08:19)
[2020-12-15] MEDS: Invanz 1 GM*** 1 G in Sodium Chloride 100ML MINI-BAG PLUS 100 ML IV SCH (10:45)
[2020-12-16] MEDS: Invanz 1 GM*** 1 G in Sodium Chloride 100ML MINI-BAG PLUS 100 ML IV SCH (10:39)
[2020-12-16 10:42] VITALS: PULSE 68
[2020-12-16 11:17] VITALS: BP 123/64; O2SAT 98
== END 2020-12-16 11:15 | disposition home or self-care (01) ==
LOC: INFUSION 07:57
PROVIDERS: ATTEND Family Medicine
DX: K57.90 Diverticulosis of intestine, part unspecified, without perforation or abscess without bleeding (principal); E86.0 Dehydration
CPT/HCPCS: 96365; 99211; J1335

== ENCOUNTER 2021-09-14 17:42 | Emergency (ER) | payer OTHER ==
--- NOTE | 2021-09-14 19:55 | ERPHSYRPT ---
- History of Present Illness Time Seen by Provider: 09/14/21 19:15 Source: patient Exam Limitations: no limitations Patient Subjective Stated Complaint: I was vacuuming and we have a large wine bottle wrapped in twine and it fell off the window sill and landed on my foot. It bruised instantly and I have pain in it, some swelling. Triage Nursing Assessment: Wine bottle fell onto pt's rt foot from window sill while she was vacuuming. Pt has bruising noted to top of rt foot by 4th and 5th toes, slight edema, and pain. Good pedal pulse present. Ice applied. Physician History: This is a 55-year-old white female who was vacuuming at her home approximately 2:30 PM when she accidentally knocked into a very heavy wine bottle that fell from a height directly onto her right foot. She has had bruising, swelling and painful ambulation since this occurred earlier today. Patient refuses narcotic medication. She also states that she cannot take any NSAIDs secondary to her having a pacemaker in place. Method of Injury: direct blow Occurred: this afternoon Quality: constant, aching, throbbing, other Severity of Pain-Max: mild Severity of Pain-Current: mild Lower Extremities Pain: foot: right Modifying Factors: Improves With: movement Associated Symptoms: other (Hurts to bear weight but can do so) Allergies/Adverse Reactions: hydrocodone [Hydrocodone] Allergy (Intermediate, Verified 09/14/21 19:23) Difficulty Breathing swelling Penicillins Allergy (Intermediate, Verified 09/14/21 19:23) Swelling of Hands vancomycin Allergy (Intermediate, Verified 09/14/21 19:23) Shortness of Breath cinammon Allergy (Intermediate, Uncoded 01/16/19 15:12) Swelling Home Medications: Potassium Chloride 10 Meq Tab* [Klor Con 10 MEQ] 20 meq PO DAILY 08/16/14 [History] Metformin HCl [Metformin ER Osmotic] 500 mg PO BID 11/04/16 [History] Carvedilol 3.125 mg [Coreg 3.125 MG] 6.25 mg PO BID 02/19/20 [History] Magnesium Oxide [Magnesium] 400 mg PO BID 02/19/20 [History] Omeprazole 20 mg PO DAILY 02/19/20 [History] Dicyclomine HCl 10 mg PO DAILY 12/09/20 [History] Hydrochlorothiazide 25 mg PO DAILY 12/09/20 [History] Losartan Potassium 100 mg PO HS 12/09/20 [History] Ondansetron ODT 4 MG [Zofran Odt 4 mg] 4 mg PO Q12H PRN PRN 12/09/20 [History] Ertapenem Sodium 1 gm [Invanz 1 GM] 0 g IV DAILY 12/14/20 [History] Hx Tetanus, Diphtheria Vaccination/Date Given: No (unknown) Hx Influenza Vaccination/Date Given: No Hx Pneumococcal Vaccination/Date Given: No Immunizations Up to Date: No Travel Risk - International Travel Have you traveled outside of the country in past 3 weeks: No - Coronavirus Screening Are you exhibiting any of the following symptoms?: No Close contact with a COVID-19 positive Pt in past 14-21 Days: No - Vaccine Status Have you recieved a Covid-19 vaccination: Yes 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: [employer] - Vaccination Dates Date of 2cond Vaccination (if applicable): 06/17/21 - Review of Systems Constitutional: No Symptoms Eyes: No Symptoms Ears, Nose, & Throat: No Symptoms Respiratory: No Symptoms Cardiac: No Symptoms Abdominal/Gastrointestinal: No Symptoms Genitourinary Symptoms: No Symptoms Musculoskeletal: Injury (Right foot dorsal aspect) Skin: No Symptoms Neurological: No Symptoms Psychological: No Symptoms Endocrine: No Symptoms Hematologic/Lymphatic: No Symptoms Immunological/Allergic: No Symptoms All Other Systems: Reviewed and Negative - Past Medical History Pertinent Past Medical History: Yes Neurological History: No Pertinent History ENT History: No Pertinent History Cardiac History: Angina, High Cholesterol, Hypertension, Myocardial Infarction ([place]) Respiratory History: Asthma, Bronchitis Endocrine Medical History: Diabetes Type II Musculoskeletal History: No Pertinent History GI Medical History: Diverticulosis History: Other Psycho-Social History: No Pertinent History Female Reproductive Disorders: No Pertinent History Other Medical History: uti, kidney cancer, weak heart (pvc's) - Past Surgical History Past Surgical History: Yes Neuro Surgical History: No Pertinent History Cardiac: Cardiac Catheterization, Internal Defibrillator, Pacemaker Respiratory: No Pertinent History Gastrointestinal: Appendectomy, Cholecystectomy Genitourinary: Kidney Surgery, Other Musculoskeletal: Other Female Surgical History: Hysterectomy, Tubal Ligation Other Surgical History: right kidney removed. rt knee, lt hand tumor removed, rt wrist carpal tunnel, partial hysterectomy, rt shoulder - Social History Smoking Status: Former smoker How long have you smoked: 24 yrs Exposure to second hand smoke: No Drug Use: none Patient Lives Alone: No - Female History Hx Now: No - Nursing Vital Signs Nursing Vital Signs: Initial Vital Signs Temperature 98.0 F 09/14/21 19:11 Pulse Rate 82 09/14/21 19:11 Respiratory Rate 16 09/14/21 19:11 Blood Pressure 127/84 09/14/21 19:11 O2 Sat by Pulse Oximetry 97 09/14/21 19:11 Pain Scale Pain Intensity 5 - Physical Exam General Appearance: no apparent distress, alert, anxiety Eyes, Ears, Nose, Throat Exam: normal ENT inspection, moist mucous membranes Neck Exam: normal inspection, non-tender, supple, full range of motion Cardiovascular/Respiratory Exam: chest non-tender, no respiratory distress Gastrointestinal/Abdominal Exam: non-tender Back Exam: normal inspection, normal range of motion, No CVA tenderness, No vertebral tenderness Hips Exam: bilateral: non-tender, normal inspection, normal range of motion, no evidence of injury Legs Exam: bilateral leg: non-tender, normal inspection, normal range of motion, no evidence of injury Knees Exam: bilateral knee: non-tender, normal inspection, normal range of motion, no evidence of injury Ankle Exam: bilateral ankle: non-tender, normal inspection, normal range of motion, no evidence of injury Foot Exam: right foot: normal range of motion, bone tenderness, deformity, soft tissue tenderness, swelling (Dorsal aspect right foot in the region of the distal fourth and fifth metatarsals), left foot: non-tender, normal inspection, no evidence of injury Neuro/Tendon Exam: normal sensation, normal motor functions, normal tendon functions, responds to pain, no evidence tendon injury Mental Status Exam: alert, oriented x 3, cooperative Skin Exam: normal color, warm, dry SpO2 Interpretation: normal SpO2: 97 O2 Delivery: Room Air - Course Nursing assessment & vital signs reviewed: Yes Ordered Tests: Active Orders 24 hr Category Date Time Status FOOT (MINIMUM 3 VIEWS) Stat Exams 09/14/21 Taken - Progress Progress Note: 09/14/21 20:06 X-ray right foot shows no evidence of any acute fracture or dislocation. Counseled pt/family regarding: diagnosis, need for follow-up, rad results - Departure Departure Disposition: Home Clinical Impression: Contusion of right foot including toes Condition: Stable Critical Care Time: No Referrals: ZOILA EVANS MD [Primary Care Provider] - Follow up/PCP as directed Additional Instructions: Ice pack to area of tenderness and bruising 3 times a day for the next 48 hours. Nonweightbearing, using crutches for the next 48 hours then slowly increase your weightbearing to normal. Follow-up with Dr. Ferrer, podiatry here at [facility] if persistent bruising swelling and pain present. Use Tylenol for pain control.
--- NOTE | 2021-09-15 08:41 | XRAY ---
Indication: Pain following injury. Comparison: June 02, 2010. 3 nonweightbearing views right foot unchanged again demonstrating small plantar heel spur. No new/acute bony, articular, or soft tissue abnormalities.
[2021-09-15 17:08] VITALS: BP 127/84; PULSE 82; O2SAT 97
== END 2021-09-14 20:17 | disposition home or self-care (01) ==
LOC: ED 17:42
DX: S90.31XA Contusion of right foot, initial encounter (principal); W20.8XXA Other cause of strike by thrown, projected or falling object, initial encounter; Y93.E3 Activity, vacuuming; Y92.009 Unspecified place in unspecified non-institutional (private) residence as the place of occurrence of the external cause; E78.5 Hyperlipidemia, unspecified; I10 Essential (primary) hypertension; E11.9 Type 2 diabetes mellitus without complications; Z79.84 Long term (current) use of oral hypoglycemic drugs; Z79.899 Other long term (current) drug therapy
CPT/HCPCS: 73630; 99283